=== PATIENT | male | born 1990 | race Hispanic/Latino ===

== ENCOUNTER 2018-01-28 00:20 | Emergency (ER) | payer SELFPAY ==
[~2018-01-28] VITALS: Ht 170.2 cm; Wt 83.6 kg
[~2018-01-28 00:20] MED LIST: CIPROFLOXACN500 MG PO; KEFLEX500 M1 PO; NAPROSYN500 MG PO; ROBITUSSIN AC10 ML PO
[2018-01-28] MEDS ORDERED: VOLTAREN - GENE75 MG PO (01:47)
[2018-01-28 02:00] VITALS: BP 129/79
== END 2018-01-28 02:14 | disposition home or self-care (01) | DRG 563 ==
LOC: ED 00:20
DX: S29.011A Strain of muscle and tendon of front wall of thorax, initial encounter (principal); F17.210 Nicotine dependence, cigarettes, uncomplicated; X58.XXXA Exposure to other specified factors, initial encounter

== ENCOUNTER 2018-02-14 21:11 | Emergency (ER) | payer SELFPAY ==
[~2018-02-14] VITALS: Ht 170.2 cm; Wt 77.0 kg
[~2018-02-14 21:11] MED LIST changes: +VOLTAREN - GENE75 MG PO
[2018-02-14 22:23] VITALS: BP 152/99
== END 2018-02-14 22:25 | disposition home or self-care (01) | DRG 125 ==
LOC: ED 21:11
PROC: 0HQ1XZZ Repair Face Skin, External Approach (ICD-10-PCS; principal; 2018-02-14)
DX: S01.111A Laceration without foreign body of right eyelid and periocular area, initial encounter (principal); F17.210 Nicotine dependence, cigarettes, uncomplicated; Y09 Assault by unspecified means; Y92.410 Unspecified street and highway as the place of occurrence of the external cause